=== PATIENT | male | born 1975 | race Hispanic/Latino ===

== ENCOUNTER 2023-09-05 09:13 | Observation (INO) | payer BC ==
[2023-09-03 10:35] LABS: BASOPHILS # (AUTO) 0.03 K/uL (0.00-0.20); BASOPHILS % (AUTO) 0.5 % (0.0-5.0); EOSINOPHILS # (AUTO) 0.19 K/uL (0.00-0.70); EOSINOPHILS % (AUTO) 3.5 % (0.0-8.0); HEMATOCRIT 48.3 % (42-54); IMMATURE GRANULOCYTE ABSOLUTE 0.04 K/uL (0-1); LYMPHOCYTES # (AUTO) 2.1 K/uL (1.0-4.8); LYMPHOCYTES % (AUTO) 37.4 % (21.0-51.0); MEAN CORPUSCULAR HEMOGLOBIN 31.8 pg (27.0-33.0); MEAN CORPUSCULAR HGB CONC 33.5 g/dL (32.0-36.0); MEAN CORPUSCULAR VOLUME 94.9 fL (79-99); MONOCYTES # (AUTO) 0.3 K/uL (0.1-1.0); NEUTROPHILS # (AUTO) 2.8 K/uL (1.8-7.7); NEUTROPHILS % (AUTO) 51.9 % (40.0-77.0); PLATELET COUNT (AUTO) 268 K/uL (130-400); RED BLOOD CELL COUNT(AUTO) 5.09 MIL/uL (4.50-6.20); RED CELL DISTRIBUTION WIDTH 12.2 % (11.0-15.5); WHITE BLOOD COUNT (AUTO) 5.5 K/uL (4.8-10.8)
[2023-09-03 10:41] VITALS: BP 165/78; PULSE 83; RESP 19
[2023-09-03 10:44] LABS: POTASSIUM 4.2 mmol/L (3.5-5.1)
[2023-09-05] VITALS (24 sets, daily range): BP systolic 120–173; BP diastolic 73–86; PULSE 75–98; RESP 14–20; O2SAT 95–98
[~2023-09-05] VITALS: Ht 177.8 cm; Wt 95.3 kg
[~2023-09-05 09:13] MED LIST: ATOR40TA71 PO; LOSA100T59 PO
[2023-09-05] MEDS ORDERED: LACTATED RINGERS 1000ML 1,000 ML IV ONE (10:43)
[2023-09-05] MEDS ORDERED: CEFAZOLIN SODIUM 2 GM VIAL ONE (10:43)
[2023-09-05] MEDS ORDERED: BUPIVACAINE/PF 0.5% 30ML VIAL ONE (11:17)
[2023-09-05] MEDS ORDERED: PROPOFOL 10 MG/ML 20ML VIAL IV ONE (13:40)
[2023-09-05] MEDS ORDERED: SUCCINYLCHOLINE 200MG/10ML SYR ONE (13:40)
[2023-09-05] MEDS ORDERED: ROCURONIUM 10MG/1ML SYR 10 MG/ML ML ONE ×3 (13:40→15:41)
[2023-09-05] MEDS ORDERED: FENTANYL CITRATE PF 50 MCG/1 ML 2ML VIAL ONE (13:40)
[2023-09-05] MEDS ORDERED: MIDAZOLAM HCL 1 MG/ML 2ML VIAL ONE (13:40)
[2023-09-05] MEDS ORDERED: LIDOCAINE PF 100MG/5ML (2%) SYRINGE 5ML ONE (13:40)
[2023-09-05] MEDS ORDERED: EPHEDRINE SULFATE 50 MG/ML AMPULE ONE (14:35)
[2023-09-05] MEDS ORDERED: PHENYLEPHRINE HCL 10 MG/ML 1ML VIAL IV ONE (14:39)
[2023-09-05] MEDS ORDERED: DEXAMETHASONE SOD PHOSPHATE 10MG/ML 1ML VIAL ONE (16:12)
[2023-09-05] MEDS ORDERED: ONDANSETRON 4MG INJ ONE (16:12)
[2023-09-05] MEDS ORDERED: MEPERIDINE-PF 25 MG/ML SYG ONE ×2 (16:20→16:41)
[2023-09-05] MEDS ORDERED: KETOROLAC 30MG VIAL (30MG/ML) IV PRN (16:30)
[2023-09-05] MEDS ORDERED: PROCHLORPERAZINE 10MG/2ML INJ IV PRN (16:30)
[2023-09-05] MEDS ORDERED: HYDROCODONE/ACETAMINOPHEN 7.5/325 MG 15 ML UDCUP PO PRN (16:30)
[2023-09-05] MEDS ORDERED: ONDANSETRON 4MG INJ IVP PRN (16:30)
[2023-09-05] MEDS: ENOXAPARIN SODIUM 30 MG/0.3 ML SQ SCH (17:42)
[2023-09-05] MEDS: LACTATED RINGERS 1000ML 1,000 ML IV SCH ×2 (19:00→23:10)
[2023-09-05] MEDS: HYDROMORPHONE 1 MG INJ IVP PRN (23:54)
[2023-09-06 03:00] VITALS: BP 120/67; PULSE 89; RESP 18
[2023-09-06] MEDS: ENOXAPARIN SODIUM 30 MG/0.3 ML SQ SCH (04:35)
[2023-09-06] MEDS: LACTATED RINGERS 1000ML 1,000 ML IV SCH ×2 (05:33→12:30)
[2023-09-06 07:45] VITALS: O2SAT 95
[2023-09-06 08:00] VITALS: BP 136/69; PULSE 96; RESP 19
[2023-09-06] MEDS ORDERED: PANTOPRAZOLE 40 MG/VIAL IVP SCH (09:00)
[2023-09-06 12:00] VITALS: BP 124/69; PULSE 86; RESP 19
[2023-09-06] MEDS ORDERED: HYDROMORPHONE 0.5 MG SYG (0.5MG/0.5ML) ONE (12:32)
[2023-09-06] MEDS: HYDROMORPHONE 1 MG INJ IVP PRN (12:34)
== END 2023-09-06 15:35 | disposition home or self-care (01) ==
LOC: DAH 09:13 → DAHIP 09:14 → INTOOBSV 09:14 → 4CH 17:30
PROVIDERS: ADMIT Surgery; ATTEND Surgery
DX: K44.9 Diaphragmatic hernia without obstruction or gangrene (principal); K21.9 Gastro-esophageal reflux disease without esophagitis; I10 Essential (primary) hypertension; E78.00 Pure hypercholesterolemia, unspecified; E78.5 Hyperlipidemia, unspecified; Z87.891 Personal history of nicotine dependence; Z79.899 Other long term (current) drug therapy
CPT/HCPCS: 80048; 85025; 86850; 86900; 86901; 36415; 93005; 96374; 43282; 96372 ×2; 96375 ×2; 43235; 96376; A6260; S2900; A4663; J7030; A4215 ×2; J7120; J3010; J1170 ×2; J0330; J1100; J2001; J3490; J1650 ×2; J2250; J2704; J2405; J1885; J0665; J2175 ×2; J2371; J0690; G0168; C1781; A4930; A4223; A4222; A4221; A4600; G0378; C9113 ×2